=== PATIENT | male | born 1950 | race Caucasian/White ===

== ENCOUNTER → 2016-10-30 | Outpatient (CLI) | payer MEDICARE, MEDICAID | END | disposition home or self-care (01) | LOC: LAB.O 12:14 | PROVIDERS: ATTEND Psychiatry & Neurology Neurology | DX: R41.3 Other amnesia (principal); E53.8 Deficiency of other specified B group vitamins; M45.0 Ankylosing spondylitis of multiple sites in spine; E03.9 Hypothyroidism, unspecified; G60.3 Idiopathic progressive neuropathy; M35.1 Other overlap syndromes; M35.3 Polymyalgia rheumatica; M33.22 Polymyositis with myopathy; G61.81 Chronic inflammatory demyelinating polyneuritis; M54.13 Radiculopathy, cervicothoracic region; M54.16 Radiculopathy, lumbar region; G25.89 Other specified extrapyramidal and movement disorders; M06.9 Rheumatoid arthritis, unspecified; D86.9 Sarcoidosis, unspecified; M35.00 Sjogren syndrome, unspecified; M32.10 Systemic lupus erythematosus, organ or system involvement unspecified; I77.9 Disorder of arteries and arterioles, unspecified ==

== ENCOUNTER → 2020-08-08 | Outpatient (CLI) | payer MEDICARE, MEDICAID ==
--- NOTE | 2020-08-09 12:56 | CT ---
Procedure: CT LUNG SCREENING Exam Date: August 08, 2020. Ordering Provider: SHELL FERMIN Clinical Indication: Nicotine dependence. Current cigarette smoker. 45 pack-year history. This patient meets eligibility criteria for low-dose CT lung cancer screening. Comparison: CT scan of chest without contrast February 2015. Technique: Using a multislice scanner, sequential helical axial imaging was obtained in the thorax, 2.5 mm thickness, 2.5 mm separation, from the level of the thoracic inlet through the lung bases without IV contrast. A low dose protocol was utilized for BMI less than 30: BMI: 25. CTDI: 1.76 mGy. 120. kVp. 45 mA. DLP 71 mGy-cm. 2D sagittal and coronal reconstructed images, 6.0 mm thickness, were obtained. This exam was performed according to our departmental dose optimization program which includes use of automated exposure control, adjustment of the mA and/or kV according to patient size and/or use of iterative reconstruction technique. Nodule measurements under 10 mm are given as mean value of 3 axes diameters. FINDINGS: Lungs and large airways: 3.7 mm solid nodule in the lateral subpleural left upper lobe axial series #2, image 35. Stable since the prior study. 3 mm calcified pleural nodule base of the right middle lobe medial and subpleural and stable. 3 mm medial subpleural calcified nodule adjacent to the trachea in the right upper lobe. 3.5 mm perifissural nodule abutting the horizontal fissure on image 2/78 and 5 mm perifissural nodule abutting the horizontal fissure on image 2/77. No interval change. 3 mm parasagittal nodule superior left major fissure is stable. Calcified nodule and minimal pleural-parenchymal scarring in the inferior lingula. 3 mm semisolid nodule associated with a small bleb in the inferior lingula on image 2/83 NOT seen on the prior study. Multiple blebs and some bulla and paraseptal and subpleural locations bilaterally more prevalent in the upper lobes and the lower lobes. Also minimal subpleural honeycombing bilaterally, more right than left and more in the upper lung palencia. Subpleural scarring in the lower lobes more right than left. These processes were seen on the prior study but have progressed. No abnormal nodule and no mass. No interval or acute infiltrate. Pleura and space: Bilateral confluent and focal thickening with no acute process. Mediastinum and trev: evaluation limited by low dose technique and lack of IV contrast. Small lymph nodes but no dominant soft tissue masses. Stable since the prior study. Heart and great vessels: Progressive coronary artery calcifications. Atherosclerotic calcifications aortic arch, descending aorta, and several brachiocephalic vessels also progressed since the prior study. Chest wall, lower neck, axillae: Evaluation also limited by same factors as described above. Normal-sized axillary lymph nodes and calcification also seen. Upper abdomen: Evaluation limited by low-dose technique. Atherosclerotic calcifications. No free air or free fluid in the included peritoneal cavity. Gallbladder partially visualized. Adrenal glands and spleen normal size and density. Osseous structures: Evaluation limited by low dose MIP technique. Spondylosis at several levels. Arthrosis shoulder clavicle sternal joints. IMPRESSION: 1. 3 mm semisolid nodule in the lingula not seen on the prior study. Multiple other solid nodules, perifissural nodules, and calcified nodules in the lungs bilaterally are stable. No abnormal nodules and no mass. No acute or interval infiltrate. Progression of paraseptal emphysema bilaterally since the prior study. [facility] Best Practice Recommendations: please see below for Lung RADS category and FOLLOW-UP.* *Lung RADS category CATEGORY 2- Nodules with a very low likelihood (less than 1%) of becoming a clinically active cancer due to size or lack of growth. Nodules: Perifissural nodule(s) < 10 mm. (526mm3). Solid or part solid nodule(s) less than 6mm (113.1 mm3), new solid nodule less than 4mm (33.5 mm3). Ground glass nodule(s) less than 30mm (92836.2 mm3) or unchanged or slow growing ground glass nodule 30mm or greater. Cat 3 or 4 nodule unchanged for 3 or more months. FOLLOW-UP: Continue annual screening with a Low Dose Chest CT in 12 months for re-evaluation. Electronically signed by: Chi Bennett MD 08/09/2020 12:54 PM [facility]
== END ==
LOC: CT 13:21
PROVIDERS: ATTEND Internal Medicine
DX: F17.210 Nicotine dependence, cigarettes, uncomplicated (principal); R91.1 Solitary pulmonary nodule; Z12.2 Encounter for screening for malignant neoplasm of respiratory organs